=== PATIENT | male | born 1995 | race Caucasian/White ===

== ENCOUNTER 2023-12-07 17:42 | Emergency (ER) | payer MEDICAID ==
[~2023-12-07] VITALS: Ht 170.2 cm; Wt 77.0 kg
[2023-12-07 17:48] VITALS: O2SAT 99
[2023-12-07 17:56] VITALS: BP 134/74; PULSE 77; RESP 16; TEMP 98; O2SAT 100
[2023-12-07 18:41] LABS: BASOPHILS % 0.4 % (0.0-2.0); EOSINOPHILS % 3.2 % (0.0-5.0); HEMATOCRIT. 45.5 % (42.0-52.0); HEMOGLOBIN. 15.7 g/dL (14.0-18.0); LYMPHOCYTES % 10.3 % (20.0-50.0); MEAN CORPUSCULAR HEMOGLOBIN 31.2 pg (28.0-32.0); MEAN CORPUSCULAR HGB CONC 34.5 g/dL (31.0-37.0); MEAN CORPUSCULAR VOLUME 90.3 fL (80.0-94.0); MEAN PLATELET VOLUME 10.9 fl (7.4-10.4); MONOCYTES % 8.3 % (2.0-8.0); NEUTROPHILS % 77.8 % (40.0-76.0); PLATELET 195 x1000/uL (130-400); RED BLOOD CELL COUNT 5.04 mill/uL (4.7-6.1); RED CELL DISTRIBUTION WIDTH 13.3 % (11.6-14.6); WHITE BLOOD COUNT 9.5 x1000/uL (4.5-11.0)
[2023-12-07 18:49] LABS: CHLORIDE 106 mEq/L (98-107); POTASSIUM 4.1 mEq/L (3.5-5.1); SODIUM 139 mEq/L (136-145)
[2023-12-07 18:50] LABS: CALCIUM 9.6 mg/dL (8.7-10.4); CARBON DIOXIDE 29 mEq/L (21-32)
[2023-12-07 18:55] LABS: GLUCOSE 89 mg/dL (70-105); UREA NITROGEN BLOOD 13 mg/dL (9-23)
[2023-12-07] MEDS: ACETAMINOPHEN 325MG TABLET PO ONE (19:12)
[2023-12-07] MEDS: METOCLOPRAMIDE HCL 10MG/2ML VIAL IV ONE (19:24)
[2023-12-07] MEDS: SODIUM CHLORIDE 0.9% 1,000 ML IV ONE (19:25)
[2023-12-07] MEDS ORDERED: PERM60CR4 TP (21:19)
== END 2023-12-07 21:30 | disposition home or self-care (01) ==
LOC: ER 17:42
DX: R21 Rash and other nonspecific skin eruption (principal)
CPT/HCPCS: 99283; 96374; 80048; 85025; 36415; J2765; J7030